=== PATIENT | male | born 1935 | race Asian ===

== ENCOUNTER 2017-12-27 10:30 | Observation (INO) | payer OTHER ==
--- NOTE | 2017-12-27 10:45 | PDOC ---
History of Present Illness - General Chief Complaint: Syncope/Near Syncope Stated Complaint: SYNCOPE Time Seen by Provider: 12/27/17 10:43 History Source: Patient Exam Limitations: No Limitations - History of Present Illness Initial Comments: 12/27/17 10:44 82y M hx of HTN, MDS, presents with syncope.Per family members, pt was well this morning. Pt got up feeling well, had breakfast and was getting ready for th eday when his noted he was a bit unsteady, then he layed down on the bed and was unresponsive for a few minutes. Dr. Velasco was called (son) who saw the pt was a bit unsteady and wasn't his usual self. entire epsidoe lasted approx 20-30 minutes, but over the past 15 minutes the pt seems to be rapidly improving although still isnt back at his usual self. The pt states he recalls getting ready and then recalls feeling unsteady on his feet but does not recall anything afterthat. He denies feeling any headache, dizziness, new vision changes (has chronic L cateract), numnbes/tiongling/weakness, fever/chills, cough, sob, cp, abd pain, back pain, diarrhea, dysuria, melena, bpr. Pt denies having feeling like this berfore. Past History - Past Medical History Allergies/Adverse Reactions: Allergies Allergy/AdvReac Type Severity Reaction Status Date / Time No Known Drug Allergies Allergy Verified 12/27/17 10:45 Home Medications: Ambulatory Orders Calcium 500 mg PO DAILY 01/02/14 Cyclosporine, Modified [Gengraf] 100 mg PO DAILY 01/02/14 Losartan Potassium 25 mg PO DAILY 01/02/14 Multivit-Min/FA/Lycopen/Lutein [Centrum Silver Men Tablet] 1 each PO DAILY 12/27 Disorders: Yes (FREQUENT URINATION) HTN: Yes - Suicide/Smoking/Psychosocial Hx Smoking History: Never smoked Hx Alcohol Use: Yes (OCCAS) Drug/Substance Use Hx: No Substance Use Type: Alcohol Hx Substance Use Treatment: No Review of Systems - Review of Systems Able to Perform ROS?: Yes Comments:: 12/27/17 10:51 Constitutional - no reported Fever, Chills, HEENT: no reported vision changes, sore throat Respiratory: no reported cough, sob, hemoptysis Cardiac: +Syncope no reported chest pain, palpitations, light headedness, leg swelling Abd/GI: no reported abd pain, nausea, vomiting, blood per rectum, melena, diarrhea : no reported dysuria, frequency, discharge Musculskelatal - no reported back pain, joint swelling skin - no reported bruising, erythema, rash neurological: no reported headache, numbness, focal weakness, tingling, ataxia, hematologic: no reported easy bruising, easy bleeding *Physical Exam - Physical Exam Comments: 12/27/17 10:52 GENERAL: The patient is awake, alert, and fully oriented, Nontoxic - in no acute distress. HEAD: Normocephalic, atraumatic. EYES: extraocular movements intact, sclera anicteric, conjunctiva clear. ENT: Normal voice, Moist mucous membranes. NECK: Normal range of motion, supple LUNGS: Breath sounds equal, clear to auscultation bilaterally. No wheezes, no rhonchi, no rales. HEART: Regular rate and rhythm, normal S1 and S2 without murmur, rub or gallop. ABDOMEN: Soft, nontender, normoactive bowel sounds. No guarding, no rebound. . No CVA tenderness EXTREMITIES: Normal range of motion, no edema. No clubbing or cyanosis. No cords, erythema, or tenderness. PSYCH: Normal mood, normal affect. SKIN: Warm, Dry, normal turgor, NEURO: Mental status: The patient is oriented x3. Cranial nerves: Cranial nerves II through XII are intact Motor: The upper extremities are 5 over 5 in all muscle groups. The lower extremities are 5 over 5 in all muscle groups. Negative pronator drift Sensation: Sensation is intact to light touch throughout. romberg negative Cerebellar: Gykhyi-bbzewn-yvtw is normal in both upper extremities. rapid alternating movements are normal. Gait: Normal. Heart Score/ECG Review - ECG Impressions Comment:: 12/27/17 10:52 Twelve-lead EKG was performed and reviewed by me. There is normal sinus rhythm with a normal rate. Rate of 65 Left axis deviation abnormal R wave progression ED Treatment Course - LABORATORY CBC & Chemistry Diagram: 12/27/17 11:10 12/27/17 11:10 Medical Decision Making - Medical Decision Making 12/27/17 10:53 82y M hx of htn, mds presents with complaint of generalized weakness and episode of syncope, w/o seizure like activity. upon arrival pt was neurologically intact, vitals noted hypertensive (had taken his meds this morning) ddx: syncope, arrhtmia, cva, anemia, metabolic dernagement, occult infection, atypical acs bgm done upon arrival was 145 will obtian ekg, cxr, ct head, labs will reassess 12/27/17 13:05 labs reviewed noted for mild dehydration, written for [address] head neg, beside nonspecific thickening on occipitum case dw dr. velasco, requests observation will admit to tele to monitor for arrythmias for eval of synocpe pt notes he is feeling improved at this point. 12/27/17 13:15 case silke lloyd consults from dr. Siegel from Cardiology and dR. Mejia from Neuro Case discussed in detail with admitting physician including history, physical exam and ancillary studies. Admitting physician has assumed care for the patient, will follow all pending diagnostics and will complete the evaluation and treatment. *DC/Admit/Observation/Transfer Diagnosis at time of Disposition: MELYSSA (acute kidney injury) Syncope Qualifiers: Syncope type: vasovagal syncope Qualified Code(s): R55 - Syncope and collapse - Discharge Dispostion Condition at time of disposition: Guarded Decision to Admit order: Yes - Referrals Referrals: Sarhay Steinberg MD [Primary Care Provider] - - Patient Instructions - Post Discharge Activity
[2017-12-27] MEDS ORDERED: HEMOQUE TEST 1 EACH EACH ONE (10:47)
[2017-12-27 11:40] LABS: INR 1.17 (0.82-1.09); PROTHROMBIN TIME (PATIENT) 13.1 SEC (10.2-13.0)
[2017-12-27 11:44] LABS: ALBUMIN 3.8 g/dl (3.5-5.0); ALK PHOS 68 U/L (32-92); ANION GAP 5 (8-16); BILIRUBIN,TOTAL 0.8 mg/dl (0.2-1.0); BLOOD UREA NITROGEN 30 mg/dl (7-18); CALCIUM 9.1 mg/dl (8.4-10.2); CHLORIDE 100 mmol/L (98-107); CO2 27 mmol/L (22-28); CREATININE 1.5 mg/dl (0.6-1.3); GLUCOSE,RANDOM 130 mg/dl (74-106); POTASSIUM 4.6 mmol/L (3.5-5.1); SGOT/AST 17 U/L (10-42); SGPT/ALT 17 U/L (10-40); SODIUM 132 mmol/L (136-145); TOT PROT 7.2 g/dl (6.4-8.3)
[2017-12-27] MEDS ORDERED: SODIUM CHLORIDE 500 ML IV STA (12:10)
[2017-12-27 12:12] LABS: BASO % 0.3 % (0-2.0); EOS % 2.4 % (0-4.5); HEMATOCRIT 41.9 % (35.4-49); HEMOGLOBIN 13.4 GM/dl (11.7-16.9); LYMPH % 18.8 % (8-40); MCH 27.2 pg (25.7-33.7); MCHC 32.1 g/dl (32.0-35.9); MEAN CELL VOLUME 84.7 fl (80-96); MEAN PLT VOLUME 9.2 fl (7.5-11.1); MONO % 8.1 % (3.8-10.2); NEUT % 70.4 % (42.8-82.8); PLATELET COUNT 136 K/MM3 (134-434); RBC 4.94 M/mm3 (4.00-5.60); RDW 17.4 % (11.9-15.9); WHITE BLOOD COUNT 5.7 K/mm3 (4.0-10.8)
[2017-12-27 13:02] LABS: URINE APPEARANCE Clear; URINE BILIRUBIN Negative (NEGATIVE); URINE GLUCOSE (UA) Negative (NEGATIVE); URINE KETONE Negative (NEGATIVE); URINE LEUK ESTERASE Negative (NEGATIVE); URINE NITRITE Negative (NEGATIVE); URINE UROBILINOGEN 0.2 (0.2-1.0)
[2017-12-27 13:27] LABS: URINE COLOR YELLOW; URINE PROTEIN 2+ (NEGATIVE)
--- NOTE | 2017-12-27 13:28 | HP ---
Admitting History and Physical - Primary Care Physician PCP: Sarahy Steinberg - Admission Chief Complaint: syncope History of Present Illness: ER HISTORY - History of Present Illness Initial Comments: 12/27/17 10:44 82y M hx of HTN, MDS, presents with syncope.Per family members, pt was well this morning. Pt got up feeling well, had breakfast and was getting ready for th eday when his noted he was a bit unsteady, then he layed down on the bed and was unresponsive for a few minutes. Dr. Velasco was called (son) who saw the pt was a bit unsteady and wasn't his usual self. entire episode lasted approx 20-30 minutes, but over the past 15 minutes the pt seems to be rapidly improving although still isnt back at his usual self. The pt states he recalls getting ready and then recalls feeling unsteady on his feet but does not recall anything afterthat. He denies feeling any headache, dizziness, new vision changes (has chronic L cateract), numnbes/tiongling/weakness, fever/chills, cough, sob, cp, abd pain, back pain, diarrhea, dysuria, melena, bpr. Pt denies having feeling like this berfore. Pt seen by me in the ER spoke with ER attending and pt's son - Dr Yevgeniy Velasco. Pt does not remember how he came to the ER and who brought him here. He admits that he felt dizzy prior to the event.No headaches, blurry vision, tinnitus, nausea, chest pain or palpitations. Has been constipated for about a month now and stated that he was straining during a bm this AM. No abdominal pain Currently pt feels fine- he is at baseline He had similar episode a few months ago when returning from [place]- felt dizzy but did not lose consciousness. Was better after drinking fluids. History Source: Patient, Family Member Limitations to Obtaining History: No Limitations - Past Medical History Cardiovascular: Yes: HTN Heme/Onc: Yes: Other (MDS) - Smoking History Smoking history: Never smoked - Alcohol/Substance Use Hx Alcohol Use: Yes (OCCAS) Home Medications - Allergies Allergies/Adverse Reactions: Allergies Allergy/AdvReac Type Severity Reaction Status Date / Time No Known Drug Allergies Allergy Verified 12/27/17 10:45 - Home Medications Home Medications: Ambulatory Orders Calcium 500 mg PO DAILY 01/02/14 Cyclosporine, Modified [Gengraf] 100 mg PO DAILY 01/02/14 Losartan Potassium 25 mg PO DAILY 01/02/14 Multivit-Min/FA/Lycopen/Lutein [Centrum Silver Men Tablet] 1 each PO DAILY 12/27 Review of Systems - Review of Systems Constitutional: denies: Chills, Fever, Lethargy, Loss of Appetite, Weakness Eyes: denies: Blurred Vision Cardiovascular: denies: Chest Pain, Palpitations, Shortness of Breath Gastrointestinal: reports: Constipation. denies: Abdominal Pain Neurological: reports: Confusion, Syncope. denies: Change in Speech Physical Examination Vital Signs: Vital Signs Temperature 97.6 F 12/27/17 10:38 Pulse Rate 62 12/27/17 12:20 Respiratory Rate 15 12/27/17 12:20 Blood Pressure 172/94 12/27/17 12:20 O2 Sat by Pulse Oximetry (%) 96 12/27/17 12:20 Constitutional: Yes: No Distress, Calm Cardiovascular: Yes: Regular Rate and Rhythm Respiratory: Yes: CTA Bilaterally Gastrointestinal: Yes: Normal Bowel Sounds, Soft, Abdomen, Obese. No: Distention, Tenderness Edema: No Neurological: Yes: Alert, Oriented, Babinski negative. No: Ataxia, Confusion, Facial Droop, Lethargy, Numbness, Seizure, Tingling, Tremors, Unsteady Gait, Weakness Labs: CBC, BMP 12/27/17 11:10 12/27/17 11:10 Imaging - Results Chest X-ray: Image Reviewed (clear) Cat Scan: Report Reviewed EKG: Image Reviewed (sinus) Problem List - Problems (1) MELYSSA (acute kidney injury) Code(s): N17.9 - ACUTE KIDNEY FAILURE, UNSPECIFIED (2) Syncope Code(s): R55 - SYNCOPE AND COLLAPSE Qualifiers: Syncope type: vasovagal syncope Qualified Code(s): R55 - Syncope and collapse (3) BPH (benign prostatic hyperplasia) Code(s): N40.0 - BENIGN PROSTATIC HYPERPLASIA WITHOUT LOWER URINRY TRACT SYMP Assessment/Plan PLAN check orthostatic vitals CT head negative will order MRI/MRA Neurology consult Cardiology evaluation check cardiac enzymes iv fluids place pt for observation Carotid doppler and echo
[2017-12-27] MEDS ORDERED: SODIUM CHLORIDE 1,000 ML IV SCH (13:30)
[2017-12-27 13:40] LABS: URINE RBC 0-2 /hpf (0-3); URINE WBC 0-2 (0-2)
[2017-12-27 15:16] VITALS: BMI 26.2
--- NOTE | 2017-12-27 19:20 | CON.NEURO ---
Consult - Past Medical History Cardio/Vascular: Yes: HTN - Alcohol/Substance Use Hx Alcohol Use: Yes (OCCAS) - Smoking History Smoking history: Never smoked Have you smoked in the past 12 months: No Home Medications - Allergies Allergies/Adverse Reactions: Allergies Allergy/AdvReac Type Severity Reaction Status Date / Time No Known Drug Allergies Allergy Verified 12/27/17 10:45 - Home Medications Home Medications: Ambulatory Orders Calcium 500 mg PO DAILY 01/02/14 Cyclosporine, Modified [Gengraf] 100 mg PO DAILY 01/02/14 Losartan Potassium 25 mg PO DAILY 01/02/14 Multivit-Min/FA/Lycopen/Lutein [Centrum Silver Men Tablet] 1 each PO DAILY 12/27 Physical Exam-Neuro Vital Signs: Vital Signs Temperature 98.6 F 12/27/17 15:07 Pulse Rate 64 12/27/17 15:07 Respiratory Rate 15 12/27/17 18:00 Blood Pressure 187/93 12/27/17 15:07 O2 Sat by Pulse Oximetry (%) 96 12/27/17 18:00 Labs: CBC, BMP 12/27/17 11:10 12/27/17 11:10 INR, PTT INR 1.17 (0.82-1.09) 12/27/17 11:10 Assessment/Plan cc Episode of Passing out on December 27, 2017 at 9 am . HPI 82 Year old male of [place] origin, has history of HTN, AND MDS ( on Cyclosporine). He was find in morning, he took his breakfast and had good night sleep. He felt dizzy and passed out. There is no seizure , tongue bite or incontinence. There was mild confusion afterward. He never had any similar episode in past. This whole episode lasted for 20 minute and Those 20-30 minute , he has no recollection . [place] he was at airport, [place]. He felt he is going to pass out and He drank coke and felt better. There is no other focal neurological symptoms. His initial ct head is normal. Carotid ultrasound prelim is normal. He is feeling better and no dizzy able to walk around PMH HTN MDS Non smoker, social drinker, lives with . NKDA SH,FH, ROS reviwed in chart Home Medications: Calcium 500 mg PO DAILY 01/02/14 Cyclosporine, Modified [Gengraf] 100 mg PO DAILY 01/02/14 Losartan Potassium 25 mg PO DAILY 01/02/14 Multivit-Min/FA/Lycopen/Lutein [Centrum Silver Men Tablet] 1 each PO DAILY 12/27 Gabapentin 100 mg once a day Neurological Examination Alert oriented x 3, not feeling dizzy, able to stand walk around, CN right sided there is cataract on pupillary reflex, eomi, no face asymmetry Motor 5/5 all ext sensation is normal ct head is normal Creatinine is slightly raised Prelim report of Carotid ultrasound unremarkable Assessment - Syncope, unlikley to be seizure or stroke Plan- concur with primary regarding mri of brain and mra o fbrain -no need for EEG or AED at this time - Cardiac work up for syncope work up - would follow up after MRI of brain Thanking you so much Rolando Mejia MD
--- NOTE | 2017-12-27 19:20 | PN ---
Progress Note (short form) - Note Progress Note: Chief Complaint: Events noted, notes reviewed, recurrent syncopal episode, denied any preceding prodrome (palpitations or diaphoresis), denies any history of chest discomfort or dyspnea History of Present Illness: Seen and examined on telemetry. Full consult dictated - Current Medication List Current Medications Sodium Chloride (Normal Saline -) 1,000 mls @ 100 mls/hr IV ASDIR PAUL Last Admin: 12/27/17 16:09 Dose: 100 mls/hr Losartan Potassium (Cozaar -) 25 mg PO DAILY PAUL Non-Formulary Medication (Cyclosporine, Modified [Gengraf]) 100 mg PO DAILY PAUL Review of Systems Cardiovascular: As noted above Respiratory: denies: Cough or Sputum Production Gastrointestinal: denies: Nausea, Vomiting, Diarrhea, Constipation or Abdominal Discomfort Musculoskeletal: No Symptoms Reported Endocrine: No Symptoms Reported - Objective Vital Signs: Last Vital Signs Temp Pulse Resp BP Pulse Ox 98.6 F 64 15 187/93 96 12/27/17 15:07 12/27/17 15:07 12/27/17 18:00 12/27/17 15:07 12/27/17 18:00 Intake & Output 12/24/17 12/25/17 12/26/17 12/27/17 23:59 23:59 23:59 23:59 Intake Total 1600 Output Total 600 Balance 1000 Weight 153 lb Constitutional: No Distress, Calm, Obese Neck: Supple Negative JVD No Bruit Respiratory: Diminished Breath Sounds at the Bases with Scattered Course Crepitus Cardiovascular: S1 S2 Regular Rate and Rhythm Grade 1-2/6 JELANI Gastrointestinal: Soft Benign Normal Bowel Sounds Ext: Negative Edema Labs: Troponin, BNP 12/27/17 11:10 Troponin I < 0.03 CBC, BMP 12/27/17 11:10 12/27/17 11:10 Hepatic Panel Total Bilirubin 0.8 mg/dl (0.2-1.0) 12/27/17 11:10 AST 17 U/L (10-42) 12/27/17 11:10 ALT 17 U/L (10-40) 12/27/17 11:10 Alkaline Phosphatase 68 U/L (32-92) 12/27/17 11:10 Albumin 3.8 g/dl (3.5-5.0) 12/27/17 11:10 INR, PTT INR 1.17 (0.82-1.09) 12/27/17 11:10 Assessment/Plan ASSESSMENT: 1. Syncopal episode, differential diagnosis includes neurocardiogenic syncope ( unclear vasodepressor vs. cardio-inhibitory) vs. arrhythmia related unlikely to be tach-arrhythmia probably kendra-arrhythmia 2. Abnormal EKG, suggestive of CAD possible ASWMI, no history and no clinical angina pectoris 3. Diastolic LV dysfunction to be considered, clinical class 0 NYHA classification LV failure 4. Heart murmur most likely related to AV sclerosis, no clinical evidence of AV stenosis 5. HTN, not at goal 6. CKD 7. History of MDS PLAN: 1. Continue Cozaar with close monitoring of renal and electrolytes 2. Add B-Blockers 3. Add ASA unless it is contraindicated 4. Agree with hydration 5. Echocardiography to evaluate LV size and function and the above noted heart murmur 6. Pending echocardiography, if LV systolic function is normal consideration for Tilt table testing +/- implantable loop recorder, if LV systolic function is impaired additional evaluation would include possible EP study 7. Recommend pharmacologic MPI study as outpatient for further evaluation of CAD Discussed in detail with the patient Guillermo Muniz M.D.
--- NOTE | 2017-12-27 20:44 | CONS ---
DATE OF CONSULTATION: 12/27/2017 REQUESTING PHYSICIAN: Sarahy Steinberg MD CHIEF COMPLAINT: Syncopal episode, cardiovascular evaluation. This is an 82-year-old male of [place], with known history of hypertensive cardiovascular disease, myelodysplastic syndrome, benign prostatic hypertrophy, who denied any history of diabetes mellitus, hypercholesterolemia, tobacco abuse, or family history of premature coronary artery disease, but reported sudden cardiac in his mother, who presented to [facility] with a syncopal episode. Patient reported a similar episode 2 months ago while traveling. At which point, he did not report any preceding symptomatology. This a.m., after breakfast, while he was in the bathroom, had sudden onset of loss of consciousness and was found by his leaning against the wall. Took several minutes for the person to regain consciousness, and upon regaining consciousness, he did not have any recollection of the event. Patient did not report any preceding palpitations. Patient did not report any preceding diaphoresis. There was no reported urinary or bowel incontinence. Patient did not report any trauma. There is no prior history of chest discomfort. Patient denies any dyspnea, orthopnea, paroxysmal nocturnal dyspnea, or peripheral edema. Patient denies any fatigue or tiredness. Currently, resting comfortably in bed, awake, alert, and oriented. Patient stated that 10 years ago, he had stress testing performed, which was reported to be negative. PAST MEDICAL HISTORY: Hypertensive cardiovascular disease, myelodysplastic syndrome, benign prostatic hypertrophy post TURP. SOCIAL HISTORY: Social drinker. Denies tobacco abuse. FAMILY HISTORY: Mother: Sudden cardiac in her mid-60s. ALLERGIES: None reported. MEDICAL THERAPY AT HOME: Included calcium 500 mg once a day, cyclosporine 100 mg once a day, losartan 25 mg once a day, multivitamin 1 tablet once a day. REVIEW OF SYSTEMS: Head and Neck: Denies headache, photophobia, blurring of vision. Respiratory: No cough or sputum production. Cardiovascular: As noted above. Gastrointestinal: Denies nausea, vomiting, diarrhea, abdominal discomfort. Genitourinary: No symptoms reported. Musculoskeletal: No symptoms reported. PHYSICAL EXAMINATION: Vital Signs: Blood pressure is 187/93 mmHg. Pulse rate is 64 beats per minute. Head and Neck: Pupils equal and reactive to light and accommodation. Extraocular muscles are intact. Anicteric sclerae. Negative JVD. No bruit appreciated. Chest: Diminished breath sounds at the bases with coarse crepitus, scattered. Cardiovascular: S1 and S2 regular. Grade 1-2/6 systolic ejection murmur. No clicks or gallops. Abdomen: Soft, benign. Normoactive bowel sounds. Extremities: Negative edema. Intact distal pulses. No calf tenderness. Electrocardiogram revealed sinus rhythm with poor R-wave progression and nonspecific T-wave abnormality. Chest x-ray report was noted. CT scan of the head report was noted. Carotid Doppler study performed; report not available. CBC revealed white cell count of 5.7, hemoglobin 13.4, platelet count 136. INR 1.17. Basic metabolic profile revealed sodium 132, potassium 4.6, BUN 30, creatinine 1.5, glucose 130. Troponin less than 0.03. ASSESSMENT: 1. Syncopal episode. Differential diagnosis includes neurocardiogenic syncope, unclear vasodepressor versus cardioinhibitory versus arrhythmia related, unlikely to be tachyarrhythmia, probably bradyarrhythmia to be considered. 2. Abnormal electrocardiogram suggestive of coronary artery disease, possible anteroseptal wall myocardial infarction. No history and no clinical angina pectoris. 3. Diastolic left ventricular dysfunction to be considered. Clinical class 0 [place] [employer] left ventricular failure. 4. Heart murmur, most likely related to aortic valve sclerosis. No clinical evidence of aortic valve stenosis. 5. Hypertensive cardiovascular disease, not at goal. 6. Chronic kidney disease. 7. History of myelodysplastic syndrome. RECOMMENDATION: 1. Continuation of Cozaar with close monitoring of renal function and electrolytes. 2. Addition of beta-blockers. 3. Addition of aspirin unless this is contraindicated. 4. Agree with gentle hydration. 5. Echocardiography to evaluate left ventricular size and function and the above-noted heart murmur. 6. Pending echocardiography, if LV systolic function is normal, consideration for tilt table testing plus/minus implantable loop recorder on outpatient basis. If LV systolic function is impaired, additional evaluation would include possible electrophysiology study. 7. Recommend pharmacologic myocardial perfusion imaging study as outpatient for further evaluation of potential coronary artery disease. Discussed in detail with the patient. Thank you for the kind referral. STEVEN JEFFRIES M.D. [id number]
[2017-12-28] MEDS: metoPROLOL SUCCINATE 25 MG TAB.SR.24H (FP) PO SCH ×2 (06:11→10:39)
[2017-12-28] MEDS ORDERED: hydrALAZINE HCL 25 MG TABLET (FP) PO ONE (07:15)
[2017-12-28 08:36] LABS: BASO % 0.3 % (0-2.0); EOS % 2.7 % (0-4.5); HEMATOCRIT 38.5 % (35.4-49); HEMOGLOBIN 12.8 GM/dl (11.7-16.9); LYMPH % 23.8 % (8-40); MCH 27.8 pg (25.7-33.7); MCHC 33.3 g/dl (32.0-35.9); MEAN CELL VOLUME 83.3 fl (80-96); MEAN PLT VOLUME 9.4 fl (7.5-11.1); MONO % 9.3 % (3.8-10.2); NEUT % 63.9 % (42.8-82.8); PLATELET COUNT 125 K/MM3 (134-434); RBC 4.61 M/mm3 (4.00-5.60); RDW 17.2 % (11.9-15.9); WHITE BLOOD COUNT 5.6 K/mm3 (4.0-10.8)
[2017-12-28 08:56] LABS: ALBUMIN 3.4 g/dl (3.5-5.0); ALK PHOS 65 U/L (32-92); ANION GAP 7 (8-16); BILIRUBIN,TOTAL 0.6 mg/dl (0.2-1.0); BLOOD UREA NITROGEN 26 mg/dl (7-18); CALCIUM 8.2 mg/dl (8.4-10.2); CHLORIDE 104 mmol/L (98-107); CO2 26 mmol/L (22-28); CREATININE 1.5 mg/dl (0.6-1.3); GLUCOSE,RANDOM 99 mg/dl (74-106); POTASSIUM 4.1 mmol/L (3.5-5.1); SGOT/AST 13 U/L (10-42); SGPT/ALT 14 U/L (10-40); SODIUM 137 mmol/L (136-145); TOT PROT 6.5 g/dl (6.4-8.3)
--- NOTE | 2017-12-28 09:55 | PN ---
Progress Note, Physician Chief Complaint: see dc summary - Current Medication List Current Medications: Active Medications Aspirin (Ecotrin -) 81 mg PO DAILY [facility] Sodium Chloride (Normal Saline -) 1,000 mls @ 100 mls/hr IV ASDIR [facility] Last Admin: 12/27/17 16:09 Dose: 100 mls/hr Losartan Potassium (Cozaar -) 25 mg PO DAILY [facility] Metoprolol Succinate (Toprol Xl -) 25 mg PO DAILY [facility] Last Admin: 12/28/17 06:11 Dose: 25 mg Non-Formulary Medication (Cyclosporine, Modified [Gengraf]) 100 mg PO DAILY [facility] - Objective Vital Signs: Vital Signs Temperature 98.4 F 12/28/17 06:00 Pulse Rate 52 L 12/28/17 06:40 Respiratory Rate 16 12/28/17 09:00 Blood Pressure 190/90 12/28/17 06:40 O2 Sat by Pulse Oximetry (%) 97 12/28/17 09:00 Labs: CBC, BMP 12/28/17 07:50 12/28/17 07:50 INR, PTT INR 1.17 (0.82-1.09) 12/27/17 11:10 Problem List - Problems (1) MELYSSA (acute kidney injury) Code(s): N17.9 - ACUTE KIDNEY FAILURE, UNSPECIFIED (2) Syncope Code(s): R55 - SYNCOPE AND COLLAPSE Qualifiers: Syncope type: vasovagal syncope Qualified Code(s): R55 - Syncope and collapse (3) BPH (benign prostatic hyperplasia) Code(s): N40.0 - BENIGN PROSTATIC HYPERPLASIA WITHOUT LOWER URINRY TRACT SYMP
[2017-12-28] MEDS ORDERED: LOSARTAN POTASSIUM 25 MG TABLET PO SCH (10:00)
[2017-12-28] MEDS ORDERED: CYCLOSPORINE MODIFIED 100 MG PO SCH ×2 (10:00)
[2017-12-28] MEDS ORDERED: ASPIRIN COATED 81 MG TABLET.EC PO SCH (10:00)
--- NOTE | 2017-12-28 10:22 | PN ---
Progress Note, Physician Chief Complaint: Events noted Not in distress History of Present Illness: Patient was seen and examined. Awake and alert. Chart was reviewed Denies chest pain, SOB or palpitations - Current Medication List Current Medications: Active Medications Aspirin (Ecotrin -) 81 mg PO DAILY [facility] Hydralazine HCl (Apresoline -) 25 mg PO BID [facility] Sodium Chloride (Normal Saline -) 1,000 mls @ 100 mls/hr IV ASDIR [facility] Last Admin: 12/27/17 16:09 Dose: 100 mls/hr Losartan Potassium (Cozaar -) 50 mg PO DAILY [facility] Metoprolol Succinate (Toprol Xl -) 25 mg PO DAILY [facility] Last Admin: 12/28/17 06:11 Dose: 25 mg Non-Formulary Medication (Cyclosporine, Modified [Gengraf]) 100 mg PO DAILY [facility] - Objective Vital Signs: Vital Signs Temperature 98.4 F 12/28/17 06:00 Pulse Rate 52 L 12/28/17 06:40 Respiratory Rate 16 12/28/17 09:00 Blood Pressure 190/90 12/28/17 06:40 O2 Sat by Pulse Oximetry (%) 97 12/28/17 09:00 Constitutional: Yes: Well Nourished Eyes: Yes: PERRL HENT: Yes: Atraumatic Neck: Yes: Supple Cardiovascular: Yes: Regular Rate and Rhythm, Murmur (SM), S1, S2 Respiratory: Yes: CTA Bilaterally Gastrointestinal: Yes: Normal Bowel Sounds, Soft. No: Tenderness Edema: No Labs: CBC, BMP 12/28/17 07:50 12/28/17 07:50 INR, PTT INR 1.17 (0.82-1.09) 12/27/17 11:10 Problem List - Problems (1) HTN (hypertension) Code(s): I10 - ESSENTIAL (PRIMARY) HYPERTENSION Qualifiers: Hypertension type: essential hypertension Qualified Code(s): I10 - Essential (primary) hypertension (2) Syncope Code(s): R55 - SYNCOPE AND COLLAPSE Qualifiers: Syncope type: vasovagal syncope Qualified Code(s): R55 - Syncope and collapse (3) Abnormal ECG Code(s): R94.31 - ABNORMAL ELECTROCARDIOGRAM [ECG] [EKG] (4) MDS (myelodysplastic syndrome) Code(s): D46.9 - MYELODYSPLASTIC SYNDROME, UNSPECIFIED (5) Heart murmur Code(s): R01.1 - CARDIAC MURMUR, UNSPECIFIED Assessment/Plan 1. Syncopal episode, ? neurocardiogenic syncope (vasodepressor vs. cardio- inhibitory) vs. rule out arrhythmia related syncope 2. Abnormal EKG, suggestive of CAD possible ASWMI 3. Diastolic LV dysfunction to be considered, clinical class 0 NYHA classification LV failure 4. Heart murmur most likely related to AV sclerosis, no clinical evidence of AV stenosis 5. HTN, not at goal 6. CKD 7. History of MDS PLAN: 1. Continue Cozaar with close monitoring of renal and electrolytes 2. Continue Metoprolol ER (uptitrate) and Hydralazine (uptitrate) 3. Continue ASA unless it is contraindicated 4. Hydration 5. Echocardiography to evaluate LV/RV and valvular function 6. Pending echocardiography, if LV systolic function is normal consideration for Tilt table testing +/- implantable loop recorder, if LV systolic function is impaired additional evaluation would include possible EP study 7. Recommend pharmacologic MPI study as outpatient for further evaluation of CAD Further plans are to follow Erik Nunes MD
[2017-12-28] MEDS ORDERED: hydrALAZINE HCL 25 MG TABLET (FP) PO SCH (11:00)
[2017-12-28] MEDS ORDERED: LOSARTAN POTASSIUM 50 MG TABLET (FP) PO SCH (11:00)
[2017-12-28 14:17] VITALS: BP 152/78; PULSE 68; TEMP 98.6
--- NOTE | 2017-12-28 16:21 | EKG ---
Test Reason : Blood Pressure : / mmHG Vent. 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
--- NOTE | 2017-12-28 19:11 | DS ---
Physical Examination Vital Signs: Vital Signs Temperature 98.6 F 12/28/17 14:17 Pulse Rate 68 12/28/17 14:17 Respiratory Rate 16 12/28/17 14:17 Blood Pressure 152/78 12/28/17 14:17 O2 Sat by Pulse Oximetry (%) 97 12/28/17 14:17 Constitutional: Yes: No Distress, Calm Cardiovascular: Yes: Regular Rate and Rhythm Respiratory: Yes: CTA Bilaterally Gastrointestinal: Yes: Normal Bowel Sounds, Soft. No: Tenderness Edema: No Labs: CBC, BMP 12/28/17 07:50 12/28/17 07:50 Discharge Summary Reason For Visit: ACUTE KIDNEY INJURY, SYNCOPE Current Active Problems MELYSSA (acute kidney injury) (Acute) Abnormal ECG (Acute) HTN (hypertension) (Acute) Heart murmur (Acute) MDS (myelodysplastic syndrome) (Acute) Syncope (Acute) Hospital Course: Admitted for syncope, acute kidney injury CT head negtaive Seen by Cardiology and Neurology Carotid doppler- normal Echo normal EF MRI and MRA - negative BP uncontrolled-- added Hydralazine, Toprol and Losartan increased Urine positive for protein-- urine studies done Cyclosporine trough pending Pt 's BP better controlled Stable for dc to home-- will need to follow up with Cardiology for further testing like tilt testing Condition: Improved - Instructions Referrals: Sarahy Steinberg MD [Primary Care Provider] - Guillermo Muniz MD [Staff Physician] - Disposition: HOME - Home Medications Comprehensive Discharge Medication List: Ambulatory Orders Calcium 500 mg PO DAILY 01/02/14 Cyclosporine, Modified [Gengraf] 100 mg PO DAILY 01/02/14 Multivit-Min/FA/Lycopen/Lutein [Centrum Silver Men Tablet] 1 each PO DAILY 12/27 Losartan Potassium [Cozaar -] 50 mg PO DAILY #30 tablet 12/28/17 Metoprolol Succinate [Toprol XL -] 25 mg PO DAILY #30 tab.sr.24h 12/28/17 hydrALAZINE HCL [Apresoline -] 25 mg PO BID #60 tablet 12/28/17
== END 2017-12-28 19:22 | disposition home or self-care (01) ==
LOC: FER 10:30 → FM/S 13:07
PROVIDERS: ADMIT Internal Medicine; ATTEND Internal Medicine
PROC: 3E0337Z Introduction of Electrolytic and Water Balance Substance into Peripheral Vein, Percutaneous Approach (ICD-10-PCS; principal; 2017-12-27)
DX: N17.9 Acute kidney failure, unspecified (principal); R55 Syncope and collapse; I10 Essential (primary) hypertension; D46.9 Myelodysplastic syndrome, unspecified; N40.0 Benign prostatic hyperplasia without lower urinary tract symptoms; R94.31 Abnormal electrocardiogram [ECG] [EKG]; R01.1 Cardiac murmur, unspecified
CPT/HCPCS: 36415; 70450-TC; 70544-TC; 70551-TC; 71046-TC-FY; 80053; 81003; 81015; 82550; 82570; 82607; 82962; 84156; 84439; 84443; 84484; 85025; 85610; 93005; 93306-TC; 93880-TC; 96360; 99285-25; G0378; J7030

== ENCOUNTER 2022-03-16 06:40 | Inpatient (IN) | payer OTHER ==
[2022-03-12 12:25] VITALS: BMI 26.1
[2022-03-16] MEDS ORDERED: CEFAZOLIN 2 GM in DEXTROSE 5%-WATER - 50 ML IVPB ONE (06:47)
[2022-03-16] MEDS ORDERED: TRANEXAMIC ACID 1000 MG/10 ML VIAL IVPUSH ONE (06:47)
[2022-03-16] MEDS ORDERED: VANCOMYCIN 1,000 MG VIAL (RESTRICTED TO ID ONLY) ONE ×2 (09:25→10:47)
[2022-03-16] MEDS ORDERED: MIDAZOLAM HCL 2 MG/2 ML SINGLE DOSE VIAL ONE (09:35)
[2022-03-16] MEDS ORDERED: BUPIVACAINE HCL/PF 0.5% (5MG/ML) 10 ML VIAL ONE (09:36)
[2022-03-16] MEDS ORDERED: BUPIVACAINE LIPOSOME/PF (EXPAREL) 266 MG/20 ML VIAL ONE (09:36)
[2022-03-16] MEDS ORDERED: SODIUM CHLORIDE 0.9% P/F 10 ML VIAL IJ ONE (09:39)
[2022-03-16] MEDS ORDERED: DEXAMETHASONE SOD PHOSPHATE 4 MG/1 ML VIAL ONE (10:22)
[2022-03-16] MEDS ORDERED: ceFAZolin SODIUM 1 GM VIAL ONE (10:22)
[2022-03-16] MEDS ORDERED: ONDANSETRON 4 MG/2 ML VIAL ONE (10:22)
[2022-03-16] MEDS ORDERED: BUPIVICAINE 0.25%/MORPH PF/KETOROLAC - 51ML DISP.SYRINGE IA ONE (11:44)
[2022-03-16] MEDS ORDERED: MAG HYDROX/AL HYDROX/SIMETH 30 ML UNIT-DOSE CUP PO PRN (12:47)
[2022-03-16] MEDS ORDERED: MAGNESIUM HYDROX 2400MG/30ML ORAL SUSPENSION 30 ML CUP PO PRN (12:47)
[2022-03-16] MEDS ORDERED: ONDANSETRON 4 MG/2 ML VIAL IVPUSH PRN (12:47)
[2022-03-16] MEDS ORDERED: ACETAMINOPHEN 500 MG TABLET (FP) PO PRN (12:51)
[2022-03-16] MEDS ORDERED: LACTATED RINGERS SOLUTION 1,000 ML IV SCH (13:00)
[2022-03-16] MEDS ORDERED: oxyCODONE HCL 5 MG TABLET PO PRN (13:15)
[2022-03-16] MEDS: ACETAMINOPHEN 1000 MG/100 ML BAG IVPB ONE (13:30)
[2022-03-16] MEDS ORDERED: CEFAZOLIN 2 GM in DEXTROSE 5%-WATER - 50 ML IVPB SCH (18:00)
[2022-03-16] MEDS: oxyCODONE HCL 5 MG TABLET PO PRN (19:39)
[2022-03-16] MEDS: ACETAMINOPHEN 500 MG TABLET (FP) PO SCH (19:42)
[2022-03-16] MEDS: hydrALAZINE HCL 25 MG TABLET (FP) PO SCH (21:29)
[2022-03-16] MEDS: SENNOSIDES/DOCUSATE COMBO (SENNA PLUS) TABLET (UD) PO SCH ×2 (21:29→21:35)
[2022-03-16] MEDS: metoPROLOL SUCCINATE 25 MG TAB.SR.24H (FP) PO SCH (21:29)
[2022-03-16] MEDS: oxyCODONE HCL 10 MG SUSTAINED ACTING TABLET PO SCH (21:30)
[2022-03-17] MEDS: ACETAMINOPHEN 500 MG TABLET (FP) PO SCH ×4 (01:31→21:26)
[2022-03-17] MEDS: CEFAZOLIN SODIUM 2 GM in DEXTROSE 5%-WATER 100 ML IVPB SCH ×3 (01:31→09:52)
[2022-03-17] MEDS: hydrALAZINE HCL 25 MG TABLET (FP) PO SCH ×3 (06:09→21:23)
[2022-03-17 07:45] LABS: HEMATOCRIT 30.9 % (35.4-49); HEMOGLOBIN 10.1 G/dL (11.7-16.9); MCHC 32.7 g/dl (32.0-35.9); MEAN CELL VOLUME 85.7 fl (80-96); MEAN PLT VOLUME 9.8 fl (7.5-11.1); PLATELET COUNT 122.3 10^3/uL (134-434); RBC 3.61 10^6/uL (4.00-5.60); RDW 16.2 % (11.9-15.9); WHITE BLOOD COUNT 10.4 10^3/uL (4.0-10.8)
[2022-03-17 07:51] LABS: CALCIUM 7.8 mg/dl (8.5-10); CREATININE 2.5 mg/dl (0.55-1.3)
[2022-03-17] MEDS: ASPIRIN 325 MG TABLET PO SCH (07:53)
[2022-03-17] MEDS: TAMSULOSIN HCL 0.4 MG CAP PO SCH (07:53)
[2022-03-17] MEDS: oxyCODONE HCL 5 MG TABLET PO PRN ×2 (07:54→15:18)
[2022-03-17] MEDS ORDERED: SODIUM CHLORIDE 0.45% 1,000 ML IV SCH (08:45)
[2022-03-17] MEDS: MULTIVITAMINS (DAILY MVI) TABLET (FP) PO SCH (09:38)
[2022-03-17] MEDS: oxyCODONE HCL 10 MG SUSTAINED ACTING TABLET PO SCH ×2 (09:38→21:25)
[2022-03-17] MEDS: SOLIFENACIN SUCCINATE 5 MG TAB PO SCH (09:38)
[2022-03-17] MEDS: [UNRECOGNIZED DRUG - OTHER] PO SCH (09:38)
[2022-03-17] MEDS: PANTOPRAZOLE 40 MG TABLET PO SCH (09:38)
[2022-03-17] MEDS: CALCIUM (OYSTER SHELL) 500 MG TABLET (FP) PO SCH (09:38)
[2022-03-17] MEDS: SENNOSIDES/DOCUSATE COMBO (SENNA PLUS) TABLET (UD) PO SCH ×2 (09:38→21:24)
[2022-03-17] MEDS: CYCLOSPORINE 25 MG PO SCH (09:38)
[2022-03-17] MEDS: amLODIPine BESYLATE 5 MG TABLET (FP) PO SCH ×2 (09:47→17:19)
[2022-03-17] MEDS: metoPROLOL SUCCINATE 25 MG TAB.SR.24H (FP) PO SCH (09:48)
[2022-03-17] MEDS: SODIUM CHLORIDE 1,000 ML IV SCH (09:53)
[2022-03-17] MEDS ORDERED: CLONIDINE HCL 0.1 MG PO SCH (10:00)
[2022-03-17] MEDS ORDERED: SODIUM POLYSTYRENE SULFONATE 15 GM/60 ML BOTTLE PO SCH (10:00)
[2022-03-17] MEDS ORDERED: PATIENT'S OWN MEDICATION (NON-FORMULARY) (Vibegron [Gemtesa] 75 MG Tablet) PO SCH (10:00)
[2022-03-17] MEDS ORDERED: PATIENT'S OWN MEDICATION (NON-FORMULARY) (Multivit-Min/Fa/Lycopen/Lutein [Centrum Silver M PO SCH (10:00)
[2022-03-17] MEDS ORDERED: cloNIDine HCL 0.1 MG TABLET PO SCH (12:30)
[2022-03-17] MEDS ORDERED: METOPROLOL TARTRATE 50 MG TABLET (FP) PO SCH (12:30)
[2022-03-17] MEDS: cloNIDine HCL 0.1 MG TABLET PO SCH (12:45)
[2022-03-17] MEDS: METOPROLOL TARTRATE 50 MG TABLET (FP) PO SCH (21:25)
[2022-03-18] MEDS: ACETAMINOPHEN 500 MG TABLET (FP) PO SCH ×4 (02:20→20:11)
[2022-03-18] MEDS: hydrALAZINE HCL 25 MG TABLET (FP) PO SCH ×3 (06:15→14:23)
[2022-03-18] MEDS: ACETAMINOPHEN 1000 MG/100 ML BAG IVPB ONE (07:53)
[2022-03-18 08:00] LABS: HEMATOCRIT 28.7 % (35.4-49); HEMOGLOBIN 9.5 G/dL (11.7-16.9); MCH 28.2 pg (25.7-33.7); MCHC 32.9 g/dl (32.0-35.9); MEAN CELL VOLUME 85.7 fl (80-96); MEAN PLT VOLUME 9.7 fl (7.5-11.1); PLATELET COUNT 110.8 10^3/uL (134-434); RBC 3.35 10^6/uL (4.00-5.60); WHITE BLOOD COUNT 7.6 10^3/uL (4.0-10.8)
[2022-03-18] MEDS: ASPIRIN 325 MG TABLET PO SCH ×2 (08:06→21:59)
[2022-03-18] MEDS: TAMSULOSIN HCL 0.4 MG CAP PO SCH (08:07)
[2022-03-18 08:09] LABS: ALBUMIN 2.7 g/dl (3.4-5.0); BILIRUBIN,TOTAL 0.6 mg/dl (0.2-1); CALCIUM 7.7 mg/dl (8.5-10); CREATININE 2.6 mg/dl (0.55-1.3); TOT PROT 5.9 g/dl (6.4-8.2)
[2022-03-18] MEDS: SODIUM CHLORIDE 1,000 ML IV SCH (09:15)
[2022-03-18] MEDS: amLODIPine BESYLATE 5 MG TABLET (FP) PO SCH (09:16)
[2022-03-18] MEDS: cloNIDine HCL 0.1 MG TABLET PO SCH (09:17)
[2022-03-18] MEDS: CALCIUM (OYSTER SHELL) 500 MG TABLET (FP) PO SCH (09:17)
[2022-03-18] MEDS: MULTIVITAMINS (DAILY MVI) TABLET (FP) PO SCH (09:17)
[2022-03-18] MEDS: CYCLOSPORINE 25 MG PO SCH (09:17)
[2022-03-18] MEDS: PANTOPRAZOLE 40 MG TABLET PO SCH (09:17)
[2022-03-18] MEDS: [UNRECOGNIZED DRUG - OTHER] PO SCH (09:17)
[2022-03-18] MEDS: SOLIFENACIN SUCCINATE 5 MG TAB PO SCH (09:18)
[2022-03-18] MEDS: METOPROLOL TARTRATE 50 MG TABLET (FP) PO SCH (09:18)
[2022-03-18] MEDS: SENNOSIDES/DOCUSATE COMBO (SENNA PLUS) TABLET (UD) PO SCH ×2 (09:18→21:59)
[2022-03-18] MEDS: oxyCODONE HCL 10 MG SUSTAINED ACTING TABLET PO SCH (09:19)
[2022-03-18] MEDS ORDERED: SODIUM POLYSTYRENE SULFONATE 15 GM/60 ML BOTTLE PO SCH (10:00)
[2022-03-18] MEDS ORDERED: SODIUM ZIRCONIUM CYCLOSILICATE (LOKELMA) 5 GM PACKET PO SCH (10:00)
[2022-03-18 17:41] VITALS: RESP 18
[2022-03-19] MEDS: ACETAMINOPHEN 500 MG TABLET (FP) PO SCH ×3 (02:46→14:48)
[2022-03-19 07:52] LABS: ALBUMIN 2.4 g/dl (3.4-5.0); BILIRUBIN,TOTAL 0.6 mg/dl (0.2-1); CALCIUM 7.5 mg/dl (8.5-10); CREATININE 2.6 mg/dl (0.55-1.3); TOT PROT 5.3 g/dl (6.4-8.2)
[2022-03-19] MEDS: TAMSULOSIN HCL 0.4 MG CAP PO SCH (08:25)
[2022-03-19] MEDS: SODIUM CHLORIDE 1,000 ML IV SCH (08:27)
[2022-03-19] MEDS ORDERED: hydrALAZINE HCL 50 MG TABLET (FP) PO SCH (09:00)
[2022-03-19 09:35] LABS: BASO % 0.2 % (0-2.0); EOS % 1.2 % (0-4.5); HEMATOCRIT 26.2 % (35.4-49); HEMOGLOBIN 8.5 GM/dL (11.7-16.9); LYMPH % 15.3 % (8-40); MCH 27.4 pg (25.7-33.7); MCHC 32.3 g/dl (32.0-35.9); MEAN CELL VOLUME 84.9 fl (80-96); MEAN PLT VOLUME 9.5 fl (7.5-11.1); MONO % 10.3 % (3.8-10.2); PLATELET COUNT 84 10^3/uL (134-434); RBC 3.09 M/mm3 (4.00-5.60); RDW 16.2 % (11.9-15.9); WHITE BLOOD COUNT 4.7 K/mm3 (4.0-10.0)
[2022-03-19] MEDS: PANTOPRAZOLE 40 MG TABLET PO SCH (09:40)
[2022-03-19] MEDS: amLODIPine BESYLATE 5 MG TABLET (FP) PO SCH (09:40)
[2022-03-19] MEDS: CALCIUM (OYSTER SHELL) 500 MG TABLET (FP) PO SCH (09:40)
[2022-03-19] MEDS: ASPIRIN 325 MG TABLET PO SCH (09:40)
[2022-03-19] MEDS: SENNOSIDES/DOCUSATE COMBO (SENNA PLUS) TABLET (UD) PO SCH (09:40)
[2022-03-19] MEDS: [UNRECOGNIZED DRUG - OTHER] PO SCH (09:40)
[2022-03-19] MEDS: SOLIFENACIN SUCCINATE 5 MG TAB PO SCH (09:40)
[2022-03-19] MEDS: CYCLOSPORINE 25 MG PO SCH (09:40)
[2022-03-19] MEDS: MULTIVITAMINS (DAILY MVI) TABLET (FP) PO SCH (09:40)
[2022-03-19] MEDS ORDERED: ASPIRIN 81 MG CHEWABLE TABLETS PO SCH (11:00)
[2022-03-19 13:58] VITALS: BP 143/72; PULSE 70; TEMP 98.4
[2022-03-20] MEDS ORDERED: SODIUM ZIRCONIUM CYCLOSILICATE (LOKELMA) 5 GM PACKET PO SCH (10:00)
== END 2022-03-19 17:28 | disposition home health service (06) | DRG 470 ==
LOC: FASUSAT 06:40 → EDSTATUS 08:30 → FM/S 14:35 → FASUSAT 03-18 14:59 → FM/S 03-19 00:02
PROC: 8E0Y0CZ Robotic Assisted Procedure of Lower Extremity, Open Approach (ICD-10-PCS; 2022-03-16)
PROC: 0SRD0J9 Replacement of Left Knee Joint with Synthetic Substitute, Cemented, Open Approach (ICD-10-PCS; principal; 2022-03-16 10:50)
DX: M17.12 Unilateral primary osteoarthritis, left knee (principal); E87.1 Hypo-osmolality and hyponatremia; I13.0 Hypertensive heart and chronic kidney disease with heart failure and stage 1 through stage 4 chronic kidney disease, or unspecified chronic kidney disease; I50.32 Chronic diastolic (congestive) heart failure; N17.9 Acute kidney failure, unspecified; D46.9 Myelodysplastic syndrome, unspecified; N40.0 Benign prostatic hyperplasia without lower urinary tract symptoms; N18.9 Chronic kidney disease, unspecified; D63.8 Anemia in other chronic diseases classified elsewhere
CPT/HCPCS: 36415; 73560-TC-LT-FY; 76775-TC; 80048; 80053; 82436; 82533; 83930; 83935; 84133; 84300; 84443; 85025; 85027; 88305-TC; 88311-TC; 94760; 97010-GP; 97116-GP; 97161-GP; C1776; J0735